=== PATIENT | male | born 1955 | race Caucasian/White ===

== ENCOUNTER 2017-03-12 13:08 | Emergency (ER) | payer OTHER ==
[~2017-03-12] VITALS: Ht 177.8 cm; Wt 122.5 kg
--- NOTE | ~2017-03-12 | CT71 ---
[facility] A Service of [facility] RADIOLOGY TEXT RESULTS PATIENT: CONNOR RUSHING LOCATION: [place] : 57 UNIT #: [id number] AGE: [address]: Moises lKine MD SEX: M ORDER DR: [id number] [facility] [address] [place], [place] [address] [id number] E MR#: [id number] Acc #: [id number] NAME: CONNOR RUSHING : 1955 SEX: M STUDY DATE/TIME: 03/12/2017 15:48 UNIT: [place] ROOM: STUDY DESCRIPTION: CT Head Wo Contrast Attending Physician: Rigo Kline M.D. Ordering Physician: Ed Antonio Hernandez M.D. Primary Care Physician: Hakan Loera M.D. MEDICAL IMAGING REPORT This report is preliminary unless electronic signature is present EXAM CT head, 03/12/2017. HISTORY Left-side facial numbness, tingling, head discomfort times today. EXAM CT head, 04/16/2016. HISTORY Vertigo and nausea. Short of air, dizzy, frontal headache, nausea, vomiting since last p.m. TECHNIQUE CT head performed skull base through vertex without intravenous contrast. This CT exam was performed with one or more of the following radiation dose reduction techniques: automatic exposure control, adjustment of mA and/or kV according to patient size, and iterative reconstruction. COMPARISON STUDIES No prior studies for comparison. FINDINGS Brainstem unremarkable. Cerebellum and cerebral hemispheres show normal [place] matter-white matter differentiation. No hemorrhage. No evidence of acute cortical ischemia. Midline structures nondisplaced. Basal ganglia intact. Ventricles, cisterns, sulci normal in size and contour. There is no intra or extraaxial mass effect or abnormal intracranial fluid collection. Intraorbital soft tissues unremarkable in visualized extent. The paranasal sinuses and mastoid air cells are clear. [facility] A Service of [facility] RADIOLOGY TEXT RESULTS PATIENT: CONNOR RUSHING LOCATION: [facility] : 57 UNIT #: [id number] AGE: [address]: Moises Kline MD SEX: M ORDER DR: IMPRESSION Normal CT head. If the patient has ongoing neurologic symptoms, consider followup imaging, preferably with MRI if the patient is a candidate. Dictated by... Johann Arango M.D. THIS IS AN ELECTRONICALLY VERIFIED REPORT Johann Arango M.D. at 03/13/2017 7:53 PM MARYELLEN/elsy TD: 03/12/2017 20:35 JOB #: [id number] MEDICAL IMAGING REPORT Page 1 of 1 COPY
== END 2017-03-12 16:43 | disposition home or self-care (01) ==
LOC: CED 13:08
DX: G51.0 Bell's palsy (principal); Z87.891 Personal history of nicotine dependence
CPT/HCPCS: 70450; 99284